=== PATIENT | male | born 1975 ===

== ENCOUNTER 2018-04-13 20:27 | Observation (INO) ==
[2018-04-13] MEDS ORDERED: Nitroglycerin 0.4 MG TAB.SUBL SL ONE (20:32)
--- NOTE | 2018-04-13 20:35 | Emergency Department Note ---
Disposition Clinical Impression: Unstable angina Chest pain Qualifiers: Chest pain type: unspecified Qualified Code(s): R07.9 - Chest pain, unspecified Disposition: Admitted As Inpatient Condition: Fair Referrals: Gianfranco Chio MD [Primary Care Provider] - Time of Disposition: 22:46 Chest Pain HPI - General Stated Complaint: Chest Pain Time Seen by Provider: 04/13/18 20:32 Source: patient Mode of arrival: EMS Limitations: no limitations Vital Signs Reviewed: Yes Nursing Notes Reviewed: Yes - History of Present Illness HPI Narrative: 42-year-old male history of hypertension, diabetes since for evaluation of chest pain. Patient's describing intermittent chest pain over the past 2 weeks. Notes it to be getting progressively worse. Patient describes anterior chest pressure without radiation. Associated with nausea vomiting and diaphoresis. Appears to be worse with exertion but does relieve with some rest. Patient has been following with his primary care doctor and has an outpatient stress test planned however he feels that he cannot make that appointment. Patient denies abdominal pain. No fevers or cough. No dyspnea. No history of heart attacks. - Related Data Home Medications Medication Instructions Recorded Confirmed Furosemide [Lasix] 40 mg PO DAILY 02/22/16 02/22/16 Gabapentin [Neurontin] 100 - 200 mg PO TID 02/22/16 02/22/16 OxyCODONE/APAP 5/325 [Percocet 1 tab PO Q8HR PRN 02/22/16 02/22/16 5/325 MG] Promethazine [Phenergan] 25 mg PO Q8HR PRN 02/22/16 02/22/16 Venlafaxine XR (24 HR) [Effexor XR] 75 mg PO DAILY 02/22/16 02/22/16 Previous Rx's Medication Instructions Recorded HydrOXYzine 10 mg PO TID PRN #10 tablet 04/23/16 Amoxicillin/Clavulanate [Augmentin] 875 mg PO BIDWM #20 tablet 06/27/16 HYDROcodone/Acet 5/325 mg [[place] 1 tab PO Q6H PRN #7 tab 06/27/16 5-325 mg] Neomycin/Polymyxin B Sulf/Hc 10 ml OT 3-4XD #4 drops.susp 06/27/16 [Awyqddhf-Scsqioxmh-Fe Ear Susp] Naproxen [Naprosyn] 500 mg PO BID 10 Days tablet 02/10/17 Allergies Allergy/AdvReac Type Severity Reaction Status Date / Time ketorolac [From Toradol] Allergy Itching Verified 02/10/17 05:32 tramadol Allergy Hives Verified 02/10/17 04:59 trazodone Allergy See Verified 02/10/17 05:34 Comments All systems ED: reviewed and negative except as stated. Constitutional: Denies: fever Cardiovascular: Reports: chest pain Respiratory: Denies: cough, dyspnea Gastrointestinal: Reports: nausea, vomiting. Denies: abdominal pain Musculoskeletal: Denies: back pain Chest Pain PMH - Past Medical History Medical history: Reports: hypertension Surgical history: Reports: no surgical history Psychiatric history: Reports: anxiety - Social History Smoking Status: Current every day smoker Alcohol use: Reports: none Drug use: Reports: marijuana Physical Exam - General Limitations: no limitations General appearance: alert, in no apparent distress - Head Head exam: atraumatic, normocephalic, normal inspection - Eye Eye exam: Present: normal appearance, PERRL, EOMI - ENT ENT exam: normal exam, normal oropharynx, mucous membranes moist - Neck Neck exam: Present: normal inspection, full ROM, trachea midline - Chest Chest inspection: Present: normal inspection - Respiratory Respiratory exam: Present: normal lung sounds bilaterally. Absent: respiratory distress - Cardiovascular Cardiovascular exam: Present: regular rate, normal rhythm. Absent: systolic murmur - Abdominal Exam Abdominal exam: Present: soft, Non-Tender - Extremities Exam Extremities exam: Present: normal inspection - Back Exam Back exam: Present: normal inspection - Neurological Exam Neurological exam: Present: alert, oriented X3, CN II-XII intact - Skin Skin exam: Present: warm, dry, intact, normal color Course Course Narrative: Patient seen and examined upon EMS arrival. Patient did receive 325 aspirin prehospital. Will get cardiopulmonary evaluation concerns for ACS. - Reevaluation(s) Reevaluation #1: Patient seen and examined. Patient is agreeable with admission. ED course d iscussed with him at bedside. Time: 22:13 Vital Signs Temperature 98.2 F 04/13/18 20:45 Pulse Rate 88 04/13/18 20:45 Respiratory Rate 04/13/18 20:45 Blood Pressure 121/90 04/13/18 20:45 O2 Sat by Pulse Oximetry 96 04/13/18 20:45 Temperature 98.2 F 04/13/18 20:45 Pulse Rate 96 04/13/18 20:45 Respiratory Rate 23 04/13/18 20:45 Blood Pressure 121/90 04/13/18 20:45 O2 Sat by Pulse Oximetry 96 04/13/18 20:45 Oxygen Delivery Oxygen Delivery Room Air Chest Pain - MDM Narrative Medical decision making narrative: Patient with known risk factors for ACS presents for evaluation of chest pain. Patient's been having intermittent chest pain over the past 2 weeks. Patient has seen his primary care doctor and has outpatient evaluation scheduled but is concerned that he cannot make it to that appointment. Patient does have a concerning history of ACS with left-sided chest pressure without radiation associated with nausea vomiting and diaphoresis. Patient's pain does appear to relieve with rest. Patient became concerned is been more frequent. Patient's symptoms are not consistent with a PE or dissection. Patient's EKG shows T-wave inversions in V1 with minimal ST depression in V2 V3. No ST elevation noted. I nitial troponin is negative. Patient declined any nitroglycerin ED. Given the patient's concerns for unstable angina the patient will be admitted to the hospital service for continued evaluation and monitoring. - Medical Records Medical records reviewed: Yes I reviewed the patient's medical records. Apr 2017 Impressions: LVEF 60%. Normal LV chamber size, wall thickness and function. Indeterminate diastolic function. Normal right ventricular structure and function. Unable to estimate RVSP due to lack of TR jet. No significant valvular dysfunction. - Lab Data Lab results reviewed: Yes I reviewed the patient's lab results. Result diagrams: 04/13/18 21:07 04/13/18 21:07 Lab Results 04/13/18 04/13/18 04/13/18 Range/Units 21:07 21:07 21:07 WBC 11.2 H (4.3-11.1) K/mcL RBC 4.58 (4.19-5.50) M/mcL Hgb 14.4 (12.9-16.9) g/dL Hct 42.2 (37.5-50.1) % MCV 92.1 (83.0-100.0) fL MCH 31.4 (28.0-33.3) pg MCHC 34.1 (31.6-35.5) g/dL RDW 12.4 (11.5-14.5) % Plt Count 297 (140-400) K/mcL MPV 10.1 (9.4-12.4) fL Immature Gran % 0.2 (0-4) % Seg Neutrophils % 50.7 % Lymphocytes % 37.0 % Monocytes % 8.1 % Eosinophils % 3.5 % Basophils % 0.5 % Neutrophils # 5.7 (1.6-8.9) K/mcL Lymphocytes # 4.1 (0.6-4.6) K/mcL Monocytes # 0.9 (0.0-1.3) K/mcL Eosinophils # 0.4 (0.0-0.6) K/mcL Basophils # 0.1 (0.0-0.2) K/mcL PT 11.8 (9.4-12.1) Seconds INR 1.0 Sodium (136-145) mEq/L Potassium (3.5-5.1) mEq/L Chloride (98-107) mEq/L Carbon Dioxide (23-29) mEq/L BUN (6-20) mg/dL Creatinine (0.70-1.30) mg/dL Est GFR ( Amer) (> 60) Est GFR (Non-Af Amer) (> 60) BUN/Creatinine Ratio (6-26) Glucose (70-105) mg/dL Calculated Osmolality (280-300) Calcium (8.6-10.3) mg/dL Troponin I (< 0.04) ng/mL B-Natriuretic Peptide 6 (Less than 100) pg/mL 04/13/18 Range/Units 21:07 WBC (4.3-11.1) K/mcL RBC (4.19-5.50) M/mcL Hgb (12.9-16.9) g/dL Hct (37.5-50.1) % MCV (83.0-100.0) fL MCH (28.0-33.3) pg MCHC (31.6-35.5) g/dL RDW (11.5-14.5) % Plt Count (140-400) K/mcL MPV (9.4-12.4) fL Immature Gran % (0-4) % Seg Neutrophils % % Lymphocytes % % Monocytes % % Eosinophils % % Basophils % % Neutrophils # (1.6-8.9) K/mcL Lymphocytes # (0.6-4.6) K/mcL Monocytes # (0.0-1.3) K/mcL Eosinophils # (0.0-0.6) K/mcL Basophils # (0.0-0.2) K/mcL PT (9.4-12.1) Seconds INR Sodium 139 (136-145) mEq/L Potassium 4.1 (3.5-5.1) mEq/L Chloride 103 (98-107) mEq/L Carbon Dioxide 25 (23-29) mEq/L BUN 15 (6-20) mg/dL Creatinine 0.87 (0.70-1.30) mg/dL Est GFR ( Amer) > 60 (> 60) Est GFR (Non-Af Amer) > 60 (> 60) BUN/Creatinine Ratio 17 (6-26) Glucose 180 H (70-105) mg/dL Calculated Osmolality 293 (280-300) Calcium 9.4 (8.6-10.3) mg/dL Troponin I < 0.03 (< 0.04) ng/mL B-Natriuretic Peptide (Less than 100) pg/mL - Radiology Data Radiology results reviewed: Yes I reviewed the patient's radiology results. Chest X-Ray 04/13/18 20:32 IMPRESSION: No acute process. D/ / Antony Otoole MD / Antony Otoole MD Interpreting Provider: Antony Otoole MD - EKG Data EKG attestation: Yes I reviewed and interpreted this EKG. EKG shows normal: sinus rhythm Rate: normal Rhythm: NSR Kramer/QRS: normal T wave inversions noted in: aVR, v1, v2, v3 Interpretation: no acute changes, nonspecific ST-T wave changes Heart Score - Score History: Highly Suspicious EKG: Non Specific repolarisation Disturbance Age: Less than 45 Risk Factors: 1-2 risk factors Troponin: Less than normal limit HEART Score Total: 4 S.B.A.R. - S.B.A.R. Situation: Demographics Background: Presenting Complaint Assessment: Vital Signs, Course and respsone to treatment, Patient/Family Expectation Recommendation: Barrier(s) to disposition, Recommendation based on pending studies, treatments, or consults Neyda Report Given to: Dr. Nelli Faye Repor Time: 22:46
[2018-04-13 21:40] LABS: Basophils # 0.1 K/mcL (0.0-0.2); Basophils % 0.5 %; Eosinophils # 0.4 K/mcL (0.0-0.6); Eosinophils % 3.5 %; Hematocrit 42.2 % (37.5-50.1); Hemoglobin 14.4 g/dL (12.9-16.9); Immature Granulocytes % 0.2 % (0-4); Lymphocytes # 4.1 K/mcL (0.6-4.6); Mean Corpuscular HGB Conc 34.1 g/dL (31.6-35.5); Mean Corpuscular Hemoglobin 31.4 pg (28.0-33.3); Mean Corpuscular Volume 92.1 fL (83.0-100.0); Mean Platelet Volume 10.1 fL (9.4-12.4); Monocytes # 0.9 K/mcL (0.0-1.3); Monocytes % 8.1 %; Neutrophils # 5.7 K/mcL (1.6-8.9); Platelet Count 297 K/mcL (140-400); Red Blood Count 4.58 M/mcL (4.19-5.50); Red Cell Distribution Width 12.4 % (11.5-14.5); Segmented Neutrophils % 50.7 %
[2018-04-13 21:58] LABS: Prothrombin Time 11.8 Seconds (9.4-12.1)
[2018-04-13 22:02] LABS: BUN/Creatinine Ratio 17 (6-26); Blood Urea Nitrogen 15 mg/dL (6-20); Calcium 9.4 mg/dL (8.6-10.3); Carbon Dioxide 25 mEq/L (23-29); Chloride 103 mEq/L (98-107); Glucose 180 mg/dL (70-105); Osmolality,Calculated 293 (280-300); Potassium 4.1 mEq/L (3.5-5.1); Sodium 139 mEq/L (136-145); eGFR For Non-African Americans > 60 (> 60)
[2018-04-13 22:03] LABS: Troponin I < 0.03 ng/mL (< 0.04)
[2018-04-13] MEDS ORDERED: Ketorolac 15 MG/ML VIAL IVP ONE (22:50)
--- NOTE | 2018-04-13 23:04 | Emergency Department Note ---
Disposition Clinical Impression: Unstable angina Chest pain Qualifiers: Chest pain type: unspecified Qualified Code(s): R07.9 - Chest pain, unspecified Disposition: Admitted As Inpatient Condition: Fair General Adult HPI - General Chief complaint: ED Chest Pain Stated complaint: Chest Pain Time Seen by Provider: 04/13/18 20:32 Source: patient Mode of arrival: EMS Limitations: no limitations Nursing Notes Reviewed: Yes Vital Signs Reviewed: Yes - History of Present Illness Pain Scale: 8 - Related Data Home Medications Medication Instructions Recorded Confirmed Furosemide [Lasix] 40 mg PO DAILY 02/22/16 02/22/16 Gabapentin [Neurontin] 100 - 200 mg PO TID 02/22/16 02/22/16 OxyCODONE/APAP 5/325 [Percocet 1 tab PO Q8HR PRN 02/22/16 02/22/16 5/325 MG] Promethazine [Phenergan] 25 mg PO Q8HR PRN 02/22/16 02/22/16 Venlafaxine XR (24 HR) [Effexor XR] 75 mg PO DAILY 02/22/16 02/22/16 Previous Rx's Medication Instructions Recorded HydrOXYzine 10 mg PO TID PRN #10 tablet 04/23/16 Amoxicillin/Clavulanate [Augmentin] 875 mg PO BIDWM #20 tablet 06/27/16 HYDROcodone/Acet 5/325 mg [[place] 1 tab PO Q6H PRN #7 tab 06/27/16 5-325 mg] Neomycin/Polymyxin B Sulf/Hc 10 ml OT 3-4XD #4 drops.susp 06/27/16 [Zwummtzn-Icpmhfokc-Bz Ear Susp] Naproxen [Naprosyn] 500 mg PO BID 10 Days tablet 02/10/17 Allergies Allergy/AdvReac Type Severity Reaction Status Date / Time ketorolac [From Toradol] Allergy Itching Verified 02/10/17 05:32 tramadol Allergy Hives Verified 02/10/17 04:59 trazodone Allergy See Verified 02/10/17 05:34 Comments Constitutional: Denies: fever Cardiovascular: Reports: chest pain Respiratory: Denies: cough, dyspnea Gastrointestinal: Reports: nausea, vomiting. Denies: abdominal pain Musculoskeletal: Denies: back pain Past Medical History - Past Medical History Medical history: Reports: hypertension Surgical history: Reports: no surgical history Psychiatric history: Reports: anxiety - Social History Smoking Status: Current every day smoker Smokeless Tobacco Status: Yes Alcohol use: Reports: none Drug use: Reports: marijuana Physical Exam - General Limitations: no limitations General appearance: alert, in no apparent distress Course Vital Signs Temperature 98.2 F 04/13/18 20:45 Pulse Rate 88 04/13/18 20:45 Respiratory Rate 19 04/13/18 20:45 Blood Pressure 121/90 04/13/18 20:45 O2 Sat by Pulse Oximetry 96 04/13/18 20:45 Temperature 98.2 F 04/13/18 20:45 Pulse Rate 87 04/13/18 22:58 Respiratory Rate 23 04/13/18 22:58 Blood Pressure 131/86 04/13/18 22:58 O2 Sat by Pulse Oximetry 96 04/13/18 22:58 Oxygen Delivery Oxygen Delivery Room Air Medical Decision Making - Medical Records Medical records reviewed: Yes I reviewed the patient's medical records. - Lab Data Lab results reviewed: Yes I reviewed the patient's lab results. Result diagrams: 04/13/18 21:07 04/13/18 21:07 Lab Results 04/13/18 04/13/18 04/13/18 Range/Units 21:07 21:07 21:07 WBC 11.2 H (4.3-11.1) K/mcL RBC 4.58 (4.19-5.50) M/mcL Hgb 14.4 (12.9-16.9) g/dL Hct 42.2 (37.5-50.1) % MCV 92.1 (83.0-100.0) fL MCH 31.4 (28.0-33.3) pg MCHC 34.1 (31.6-35.5) g/dL RDW 12.4 (11.5-14.5) % Plt Count 297 (140-400) K/mcL MPV 10.1 (9.4-12.4) fL Immature Gran % 0.2 (0-4) % Seg Neutrophils % 50.7 % Lymphocytes % 37.0 % Monocytes % 8.1 % Eosinophils % 3.5 % Basophils % 0.5 % Neutrophils # 5.7 (1.6-8.9) K/mcL Lymphocytes # 4.1 (0.6-4.6) K/mcL Monocytes # 0.9 (0.0-1.3) K/mcL Eosinophils # 0.4 (0.0-0.6) K/mcL Basophils # 0.1 (0.0-0.2) K/mcL PT 11.8 (9.4-12.1) Seconds INR 1.0 Sodium (136-145) mEq/L Potassium (3.5-5.1) mEq/L Chloride (98-107) mEq/L Carbon Dioxide (23-29) mEq/L BUN (6-20) mg/dL Creatinine (0.70-1.30) mg/dL Est GFR ( Amer) (> 60) Est GFR (Non-Af Amer) (> 60) BUN/Creatinine Ratio (6-26) Glucose (70-105) mg/dL Calculated Osmolality (280-300) Calcium (8.6-10.3) mg/dL Troponin I (< 0.04) ng/mL B-Natriuretic Peptide 6 (Less than 100) pg/mL 04/13/18 Range/Units 21:07 WBC (4.3-11.1) K/mcL RBC (4.19-5.50) M/mcL Hgb (12.9-16.9) g/dL Hct (37.5-50.1) % MCV (83.0-100.0) fL MCH (28.0-33.3) pg MCHC (31.6-35.5) g/dL RDW (11.5-14.5) % Plt Count (140-400) K/mcL MPV (9.4-12.4) fL Immature Gran % (0-4) % Seg Neutrophils % % Lymphocytes % % Monocytes % % Eosinophils % % Basophils % % Neutrophils # (1.6-8.9) K/mcL Lymphocytes # (0.6-4.6) K/mcL Monocytes # (0.0-1.3) K/mcL Eosinophils # (0.0-0.6) K/mcL Basophils # (0.0-0.2) K/mcL PT (9.4-12.1) Seconds INR Sodium 139 (136-145) mEq/L Potassium 4.1 (3.5-5.1) mEq/L Chloride 103 (98-107) mEq/L Carbon Dioxide 25 (23-29) mEq/L BUN 15 (6-20) mg/dL Creatinine 0.87 (0.70-1.30) mg/dL Est GFR ( Amer) > 60 (> 60) Est GFR (Non-Af Amer) > 60 (> 60) BUN/Creatinine Ratio 17 (6-26) Glucose 180 H (70-105) mg/dL Calculated Osmolality 293 (280-300) Calcium 9.4 (8.6-10.3) mg/dL Troponin I < 0.03 (< 0.04) ng/mL B-Natriuretic Peptide (Less than 100) pg/mL - Radiology Data Radiology results reviewed: Yes I reviewed the patient's radiology results. Chest X-Ray 04/13/18 20:32 IMPRESSION: No acute process. D/ / Antony Otoole MD / Antony Otoole MD Interpreting Provider: Antony Otoole MD - EKG Data EKG #1 EKG attestation: Yes I reviewed and interpreted this EKG. EKG results narrative: EKG showed normal sinus rhythm with ventricular rate of 98. Minimal anterior ST segment depression. No ST elevation. No arrhythmia or ectopy. Attestation Statement - Attestation Attestation: I, Nabor Ho MD, personally evaluated this patient and discussed their management with the resident physician. I reviewed the resident's note and agree with the documented findings, medical decision making, and plan of care. 42-year-old male presents to the emergency department with a complaint of having intermittent sharp substernal chest pains and epigastric pain. This is been going on for at least several weeks. He states it seems to be getting progressively worse. It is sometimes related with exertion, especially when he has sex. He does have shortness of breath with the episodes. Also nausea and some vomiting. Also diaphoresis. No radiation of the pain to the neck or jaw or down the arms. No definite prior cardiac history. He is a heavy smoker. Also some heart disease in the family. On examination patient is a well-developed well-nourished male in no acute distress. He is alert and oriented 3. There is no cyanosis or diaphoresis. Breath sounds are clear and equal bilaterally. Heart regular rate and rhythm. Abdomen is soft with normal bowel sounds. Mild epigastric tenderness. No pedal edema. EKG shows normal sinus rhythm with minimal anterior ST depression. Chest x-ray negative. Labs reviewed. Troponin normal. The hospitalist, Dr. Aiken, was consulted and accepted admission of the patient .
[2018-04-14] MEDS ORDERED: GI Cocktail 40 ML EACH PO ONE (00:26)
[2018-04-14] MEDS ORDERED: *HR* Morphine 2 MG/ML SYRINGE IVP ONE (00:26)
[2018-04-14] MEDS ORDERED: Aspirin 325 MG TABLET PO ONE (00:30)
--- NOTE | 2018-04-14 00:33 | Internal Med History&Physical ---
Date of Encounter: 04/14/18 Time of Encounter: 00:31 Internal Medicine - H&P: HPI Chief complaint: chest pain Admitted From: Home Plans for Post Hospital Care: Home History of present illness: Fidel Hutchins is a 42-year-old obese male who smokes about 3 packs of cigarettes daily and has hypertension presenting with a complaint of chest pain is been intermittent over the past month but worse and now over the past week describing it as a sharp and burning sensation in his precordium that is exacerbated by physical activity companied by dyspnea on exertion. He says that given the frequency and functional limitation it is not worrying him and thus has decided to seek medical attention. He was seen clinically and hemodynamically stable in the ER however he refused nitroglycerin because he say s that he frequently gets headaches and migraines and does not want to nitroglycerin to exacerbate it. Labs are grossly unremarkable and EKG not showing signs of acute ischemia however given the persistence of his pain he is admitted for observation. Past Med Surg Social Fam HX - Past Medical History Medical history: hypertension Psychiatric history: anxiety - Past Surgical History Surgical History: no surgical history Additional surgical history: right wrist sx cyst removed - Social History Smoking Status: Current every day smoker Smokeless Tobacco Status: Yes Alcohol use: none Drug use: marijuana - Family History Father Hx Family Cardiac Disorders: Yes ([place] in his 40's, also has HTN and DM) Mother Hx Family Cardiac Disorders: Yes ([place] in her 30's) Internal Medicine - H&P: Meds Furosemide [Lasix] 40 mg PO DAILY 02/22/16 [History] Gabapentin [Neurontin] 100 - 200 mg PO TID 02/22/16 [History] OxyCODONE/APAP 5/325 [Percocet 5/325 MG] 1 tab PO Q8HR PRN 02/22/16 [History] Promethazine [Phenergan] 25 mg PO Q8HR PRN 02/22/16 [History] Venlafaxine XR (24 HR) [Effexor XR] 75 mg PO DAILY 02/22/16 [History] HydrOXYzine 10 mg PO TID PRN #10 tablet 04/23/16 [Rx] Amoxicillin/Clavulanate [Augmentin] 875 mg PO BIDWM #20 tablet 06/27/16 [Rx] HYDROcodone/Acet 5/325 mg [[place] 5-325 mg] 1 tab PO Q6H PRN #7 tab 06/27/16 [Rx] Neomycin/Polymyxin B Sulf/Hc [Urqlgzxy-Glargyfsg-Ch Ear Susp] 10 ml OT 3-4XD #4 drops.susp 06/27/16 [Rx] Naproxen [Naprosyn] 500 mg PO BID 10 Days tablet 02/10/17 [Rx] Allergy/AdvReac Type Severity Reaction Status Date / Time ketorolac [From Toradol] Allergy Itching Verified 02/10/17 05:32 tramadol Allergy Hives Verified 02/10/17 04:59 trazodone Allergy See Verified 02/10/17 05:34 Comments All Systems PM: A 10-system review of systems was performed and is negative for pertinent find ings except as documented above in the HPI. - Constitutional Vitals: Temp Pulse Resp BP Pulse Ox 97.8 F 84 16 129/72 96 04/13/18 23:51 04/13/18 23:51 04/13/18 23:51 04/13/18 23:51 04/13/18 23:51 Exam: Vitals: Reviewed General: Developed male lying in bed in no acute distress. Skin: Warm and supple with multiple tattoos. HEENT: Moist mucous membranes. No conjunctivae pallor. Neck: No lymphadenopathy. No JVD. No carotid bruits. No palpable thyroid. Chest: Normal thoracic expansion. Normal breath sounds. Clear to auscultation. Heart: Normal S1 & S2; rhythmic. No rubs or murmurs. Abdomen: Non-distended, soft and non-tender to palpation. No peritoneal reaction. Liver is normal in size. Spleen is not palpable. Extremities: No clubbing, cyanosis or edema. No calf tenderness. Normal distal pulses. Neurological: Awake, alert and oriented to person, place and time. No focal deficits. Psych: Notably anxious. Internal Med - H&P Results - Labs CBC & Chem 7: 04/13/18 21:07 04/13/18 21:07 Labs: Short CBC 04/13/18 Range/Units 21:07 WBC 11.2 H (4.3-11.1) K/mcL Hgb 14.4 (12.9-16.9) g/dL Hct 42.2 (37.5-50.1) % Plt Count 297 (140-400) K/mcL Neutrophils # 5.7 (1.6-8.9) K/mcL BMP 04/13/18 21:07 Sodium 139 Potassium 4.1 Chloride 103 Carbon Dioxide 25 BUN 15 Creatinine 0.87 Glucose 180 H Calcium 9.4 Cardiac Enzymes 04/13/18 Range/Units 21:07 Troponin I < 0.03 (< 0.04) ng/mL - Impressions ITS Impressions Chest X-Ray 04/13/18 20:32 IMPRESSION: No acute process. D/ / Antony Otoole MD / Antony Otoole MD Interpreting Provider: Antony Otoole MD - Assessment and plan (1) Chest pain Current Visit: Yes Status: Acute Assessment and plan: Patient with a remarkable 1st degree family history, obesity and active smoker presenting with progressive chest pain with exertion concerning for angina. Will observe on telemetry, give loading dose of ASA and trend troponins. Schedule for stress test in the morning. Qualifiers: Chest pain type: unspecified Qualified Code(s): R07.9 - Chest pain, unspecified (2) Smoker Current Visit: Yes Status: Acute Assessment and plan: Counseled accordingly and resources made available if needed. (3) HTN (hypertension) Current Visit: Yes Status: Acute Assessment and plan: Does not appear to be on medications however he does report a history of this. We will continue to monitor. Qualifiers: Hypertension type: essential hypertension Qualified Code(s): I10 - Essential (primary) hypertension (4) DVT prophylaxis Current Visit: Yes Status: Acute Assessment and plan: Subcutaneous heparin. (5) Mood disorder Current Visit: Yes Status: Acute Assessment and plan: Will continue hydroxyzine prn for anxiety and daily venlafaxine. - Time Spent With Patient Total time spent is greater than 50% in coordination of care (as documented) at patient's floor/unit and/or counseling patient: Greater than 35 minutes
[2018-04-14 04:04] LABS: Amphetamine Screen,Urine Negative ng/mL (Cutoff=1000); Barbiturate Screen,Urine Negative ng/mL (Cutoff=200); Benzodiazepines Screen,Urine Negative ng/mL (Cutoff=200); Cannabinoid Screen,Urine Positive ng/mL (Cutoff = 50); Cocaine Screen,Urine Negative ng/mL (Cutoff= 300); Opiate Screen,Urine Positive ng/mL (Cutoff=300); Phencyclidine Screen,Urine Negative ng/mL (Cutoff=25)
[2018-04-14 04:13] LABS: Troponin I < 0.03 ng/mL (< 0.04)
[2018-04-14] MEDS ORDERED: Regadenoson 0.4 MG/5 ML SYRINGE IVP ONE (06:02)
[2018-04-14 06:06] LABS: Estimated Average Glucose 160 mg/dl; Hemoglobin A1C 7.2 %
[2018-04-14] MEDS: *HR* Heparin 5,000 UNIT/ML VIAL SQ SCH ×2 (06:07→18:06)
[2018-04-14 08:07] LABS: Chol/HDL Ratio 4.4 (0-4.9); Cholesterol 129 mg/dL (< 200); HDL Cholesterol 29 mg/dL (40-59); LDL Cholesterol,Calculated 65 mg/dL (0-99); Triglycerides 177 mg/dL (< 150)
[2018-04-14] MEDS: *HR* OxyCODONE/APAP 5/325 TABLET PO PRN ×2 (09:38→18:11)
[2018-04-14] MEDS: Venlafaxine XR (24 HR) 75 MG CAP.ER.24H PO SCH (09:41)
--- NOTE | 2018-04-14 12:18 | Event Note ---
Date of Encounter: 04/14/18 Time of Encounter: 10:45 H&P reviewed. 42-year-old male with history of morbid obesity, tobacco abuse, and newly diagnosed diabetes with strong family history of CAD, was admitted for atypical chest pain. Serial troponins negative and EKG showed minimal ST depression from V2 to V4. A drug screen positive for opioids and marijuana. For stress test today and tomorrow. He will need metformin upon discharge. Lifestyle modifications including smoking cessation emphasized to the patient.
[2018-04-14] MEDS: Ketorolac 15 MG/ML VIAL IVP PRN (13:27)
[2018-04-14] MEDS ORDERED: Acetaminophen/Aspirin/Caffeine TABLET PO PRN (15:38)
[2018-04-15] MEDS: *HR* OxyCODONE/APAP 5/325 TABLET PO PRN (04:32)
[2018-04-15] MEDS: *HR* Heparin 5,000 UNIT/ML VIAL SQ SCH (05:40)
[2018-04-15] MEDS: Ketorolac 15 MG/ML VIAL IVP PRN (09:24)
[2018-04-15] MEDS: Venlafaxine XR (24 HR) 75 MG CAP.ER.24H PO SCH ×2 (09:24→09:27)
[2018-04-15 09:50] VITALS: BP 133/85
--- NOTE | 2018-04-15 10:49 | Event Note ---
Date of Encounter: 04/15/18 Time of Encounter: 10:40 42-year-old male with history of morbid obesity, tobacco abuse, and newly diagnosed diabetes with strong family history of CAD, was admitted for atypical chest pain. Serial troponins negative and EKG showed minimal ST depression from V2 to V4. Had second portion of stress test this morning which was reported to be negative for ischemia or infarct. Before I was able to see the patient to inform the result and prescribe PO metformin for newly dx DM, he left AMA without being seen.
--- NOTE | 2018-04-15 16:00 | Electrocardiograph Report ---
[address] [address] Test Date: 2018-04-13 Pat Name: Fidel Hutchins Department: [id number] Room: 3A46 Gender: M [employer]: : [id number] Requested By: Reggie Neely Order Number: [id number] Reading MD: Shira Hall Measurements Intervals [place] Rate: 98 P: 64 [place]: 158 QRS: 26 QRSD: 98 T: 51 QT: 344 QTc: 440 Interpretive Statements Sinus rhythm Nonspecific T abnormalities Electronically Signed On 04-15-2018 15:59:16 EST by Shira Hall
== END 2018-04-15 10:46 | disposition left against medical advice (07) ==
LOC: 3ANU 20:27 → EMEROOARM 20:27 → SUATTDRO 23:05 → 3ANU 23:44
PROVIDERS: ADMIT Internal Medicine; ATTEND Internal Medicine